=== PATIENT | male | born 1990 ===

== ENCOUNTER 2019-10-14 22:36 | Emergency (ER) | payer OTHER ==
[~2019-10-14] VITALS: Ht 175.3 cm; Wt 74.8 kg
[2019-10-15] MEDS ORDERED: BUPR100ER (02:54)
== END 2019-10-15 04:55 | disposition home or self-care (01) ==
LOC: ER 22:36
DX: S01.01XA Laceration without foreign body of scalp, initial encounter (principal); V09.9XXA Pedestrian injured in unspecified transport accident, initial encounter
CPT/HCPCS: 70450; 90471; 90714; J3010

== ENCOUNTER → 2023-02-21 | Outpatient (CLI) | payer OTHER ==
[~2023-02-21] MED LIST: BUPR100ER
[2023-02-21 13:37] LABS: Hematocrit 48.1 % (37.0-53.0); Hemoglobin 15.6 g/dL (13.5-17.5); Mean Corpuscular HGB 29.5 pg (26.0-34.0); Mean Corpuscular HGB Conc 32.4 g/dL (31.5-36.5); Mean Corpuscular Volume 91 fL (80-100); Mean Platelet Volume 11.7 fL (9.1-12.4); Platelet Count 173 K/mm3 (150-400); RDW Coefficient Variation 13.2 % (11.7-14.2); RDW Standard Deviation 42.1 fL (35.1-46.3); Red Blood Cell Count 5.29 M/mm3 (4.30-5.90); White Blood Cell Count 15.88 K/mm3 (4.00-11.30)
[2023-02-21 13:49] LABS: Albumin, Blood 3.4 g/dL (3.4-5.0); Albumin/Globulin Ratio 0.8 (0.8-1.8); Bilirubin, Total 0.7 mg/dL (0.1-1.0); Bun/Creatinine Ratio 7.6 (12.0-20.0); Calcium, Blood 9.4 mg/dL (8.5-10.1); Creatinine, Blood 1.32 mg/dL (0.60-1.20); Globulin, Blood 4.2 g/dL (2.2-4.0); Potassium, Blood 3.5 mmol/L (3.5-5.5); Total Protein, Blood 7.6 g/dL (6.4-8.2)
[2023-02-21 14:11] LABS: BAND PERCENT MAN 25 % (0-8); BASOPHILS PERCENT MAN 0 % (0-2); EOSINOPHILS PERCENT MAN 0 % (0-6); LYMPHOCYTES ABSOLUTE MAN 0.79 K/mm3 (0.84-5.20); LYMPHOCYTES PERCENT MAN 5 % (21-46); MONOCYTES ABSOLUTE MAN 0.31 K/mm3 (0.16-1.47); MONOCYTES PERCENT MAN 2 % (4-13); NEUTROPHILS ABSOLUTE MAN 14.76 K/mm3 (1.96-9.15); SEG NEUTROPHILS PERCENT MAN 68 % (41-73); TOTAL CELLS COUNTED 100
[2023-02-22 07:44] LABS: Campylobacter Sp Detected (NOT DETECT)
[2023-02-22 07:45] LABS: Adenovirus F 40/41 Not Detected (NOT DETECT); Astrovirus Not Detected (NOT DETECT); Cryptosporidium Not Detected (NOT DETECT); Cyclospora Cayetanensis Not Detected (NOT DETECT); E. Coli O157 Not Detected (NOT DETECT); Entamoeba Histolytica Not Detected (NOT DETECT); Enteroaggregative E. coli-EAEC Not Detected (NOT DETECT); Enteropathogenic E. coli-EPEC Not Detected (NOT DETECT); Enterotoxigenic E. coli-ETEC Not Detected (NOT DETECT); Giardia Lamblia Not Detected (NOT DETECT); Norovirus GI/GII Not Detected (NOT DETECT); Plesiomonas Shigelloides Not Detected (NOT DETECT); Rotavirus A Not Detected (NOT DETECT); Salmonella Sp Not Detected (NOT DETECT); Sapovirus Not Detected (NOT DETECT); Shiga Toxin-prod E. coli-STEC Not Detected (NOT DETECT); Shigella/Enteroin E. coli-EIEC Not Detected (NOT DETECT); Vibrio Cholerae Not Detected (NOT DETECT); Vibrio Sp Not Detected (NOT DETECT); Yersinia Enterocolitica Not Detected (NOT DETECT)
== END | disposition home or self-care (01) ==
LOC: LAB SHORT 13:33 → LAB 13:33
PROVIDERS: Physician Assistant Medical
DX: E86.0 Dehydration (principal)
CPT/HCPCS: 80053; 85025; 87507

== ENCOUNTER 2024-04-13 21:23 | Emergency (ER) | payer OTHER ==
[~2024-04-13] VITALS: Ht 172.7 cm; Wt 83.9 kg
[2024-04-13 21:31] VITALS: BP 148/99
== END 2024-04-13 22:24 | disposition home or self-care (01) ==
LOC: ER 21:23
DX: S61.213D Laceration without foreign body of left middle finger without damage to nail, subsequent encounter (principal); W26.9XXD Contact with unspecified sharp object(s), subsequent encounter
CPT/HCPCS: 99282

== ENCOUNTER 2025-02-18 13:37 | Emergency (ER) | payer OTHER ==
[~2025-02-18] VITALS: Ht 175.3 cm; Wt 86.2 kg
[2025-02-18 14:10] VITALS: BP 160/110
[2025-02-18] MEDS ORDERED: Ketorolac Tromethamine 15mg Vial IM ONE (14:15)
[2025-02-18] MEDS ORDERED: OXAYDO5 M1 PO (16:25)
== END 2025-02-18 16:42 | disposition home or self-care (01) ==
LOC: ER 13:37
DX: S61.211A Laceration without foreign body of left index finger without damage to nail, initial encounter (principal); S61.012A Laceration without foreign body of left thumb without damage to nail, initial encounter; W31.89XA Contact with other specified machinery, initial encounter; Z79.899 Other long term (current) drug therapy
CPT/HCPCS: 12002; 73130; 96372; 99283-25; J1885